=== PATIENT | male | born 1960 | race Caucasian/White ===

== ENCOUNTER 2023-02-26 00:47 | Inpatient (IN) | payer OTHER ==
[2023-02-26] MEDS ORDERED: CEFTRIAXONE 1000 MG/VIAL ONE (01:26)
[2023-02-26] MEDS ORDERED: NA CHLORIDE 0.9% 250 ML ONE (01:27)
[2023-02-26] MEDS ORDERED: ASPIRIN 81 MG CHEWABLE TABLET ONE (01:27)
[2023-02-26] MEDS ORDERED: NA CHLORIDE 0.9% 3,000 ML ONE (01:27)
[2023-02-26] MEDS ORDERED: FAMOTIDINE 20 MG/2 ML VIAL IV ONE (01:27)
[2023-02-26] MEDS ORDERED: AZITHROMYCIN 500 MG INJ IVPB ONE (01:27)
[2023-02-26] MEDS ORDERED: METHYLPREDNISOLONE 125 MG INJ ONE (01:27)
[2023-02-26 01:48] LABS: Absolute Lymphocytes (CBC) 0.6 K/uL (0.7-4.9); Hematocrit 39.9 % (39.6-49.0); MCV 85.5 fL (80-100); MPV 7.8 fL (7.6-11.3); Platelets 108 thou/uL (152-406); RBC Red Blood Cell Count 4.66 M/uL (4.33-5.43)
[2023-02-26 01:49] LABS: Protime INR 1.06
[2023-02-26 01:59] LABS: Albumin 3.1 g/dL (3.4-5.0); Bilirubin Direct 0.3 mg/dL (0-0.2); Bilirubin Indirect, Calculated 0.3 mg/dL (0.2-0.8); Bilirubin Total 0.6 mg/dL (0.2-1.0); C-Reactive Protein 9.09 mg/L (<3.00); Magnesium 2.4 mg/dL (1.6-2.4); Potassium 3.6 mEq/L (3.5-5.1); Troponin High Sensitivity 35.1 pg/mL (<58.9)
--- NOTE | 2023-02-26 01:59 | ER ---
Nurse's Notes [facility] Name: Marco Joseph Jr Age: 62 yrs Sex: Male : 1960 Arrival Date: 02/26/2023 Time: 00:47 Bed 20 Private MD: Diagnosis: SARS-associated coronavirus as the cause of diseases classified elsewhere;Weakness;Dehydration;Dyspnea;Hypotension, unspecified;Abnormal results of kidney function studies;Acute kidney failure, unspecified Presentation: 02/26 00:55 Chief complaint: Patient states: Pt was diagnosed with Covid on 02/19/23 from a home jb4 test. He sounds like he has pneumonia. was 83% on RA at home with a B/p of 95/60. He received 125 of Solumedrol IV and 500ml of NS IV. IV came out during transfer. BGL was 130. Coronavirus screen: Client presents with at least one sign or symptom that may indicate coronavirus-19. Ebola Screen: No symptoms or risks identified at this time. Initial Sepsis Screen: Does the patient meet any 2 criteria? Systolic BP < 90 mmHg. Yes Does the patient have a suspected source of infection? No. Patient's initial sepsis screen is negative. Risk Assessment: Do you want to hurt yourself or someone else? Patient reports no desire to harm self or others. Onset of symptoms was February 26, 2023. Transition of care: patient was not received from another setting of care. 00:55 Method Of Arrival: EMS: [facility] jb4 00:55 Acuity: CARITO 2 jb4 Historical: - Allergies: 01:01 Lisinopril; jb4 01:01 Prozac; jb4 - Home Meds: 01:01 carvedilol oral [Active]; Clonazepam Oral [Active]; atorvastatin oral [Active]; jb4 - PMHx: 01:01 Borederline DM; CVA; HTN; Heart block; Blind in R eye; jb4 - PSHx: 01:01 Shrapnel removed from ankle; jb4 - Immunization history:: Adult Immunizations up to date, Client reports receiving the 2nd dose of the Covid vaccine. - Family history:: not pertinent. - Social history:: Smoking status: Patient denies any tobacco usage or history of. Screenin:20 [facility] ED Fall Risk Assessment (Adult) History of falling in the last 3 months, lg3 including since admission No falls in past 3 months (0 pts). Abuse screen: Denies threats or abuse. Denies injuries from another. Nutritional screening: No deficits noted. Tuberculosis screening: No symptoms or risk factors identified. Assessment: 01:20 General: Appears in no apparent distress. comfortable, Behavior is calm, cooperative. lg3 Pain: Denies pain. Neuro: No deficits noted. Davison Agitation-Sedation Scale (RASS): 0 - Alert and Calm Level of Consciousness is awake, alert, obeys commands, Oriented to person, place, time, situation. Cardiovascular: Reports fatigue, shortness of breath, Denies chest pain, Capillary refill < 3 seconds Clubbing of nail beds is absent JVD is absent Patient's skin is warm and dry. Respiratory: Airway is patent Respiratory effort is even, unlabored, Respiratory pattern is regular, symmetrical. Respiratory: Reports shortness of breath at rest labored breathing. GI: No deficits noted. No signs and/or symptoms were reported involving the gastrointestinal system. Abdomen is round non-distended, obese. : No deficits noted. No signs and/or symptoms were reported regarding the genitourinary system. EENT: No deficits noted. No signs and/or symptoms were reported regarding the EENT system. Derm: No deficits noted. No signs and/or symptoms reported regarding the dermatologic system. Skin is intact, is healthy with good turgor, Skin is dry, Skin is normal, Skin temperature is warm. Musculoskeletal: No deficits noted. No signs and/or symptoms reported regarding the musculoskeletal system. Circulation, motion, and sensation intact. Range of motion: intact in all extremities. 02:47 Reassessment: Patient appears in no apparent distress at this time. No changes from lg3 previously documented assessment. Patient and/or family updated on plan of care and expected duration. Pain level reassessed. Patient is alert, oriented x 3, equal unlabored respirations, skin warm/dry/pink. 05:46 Reassessment: Patient appears in no apparent distress at this time. No changes from jb4 previously documented assessment. Patient and/or family updated on plan of care and expected duration. Pain level reassessed. Patient is alert, oriented x 3, equal unlabored respirations, skin warm/dry/pink. Patient states feeling better. Patient states symptoms have improved. Vital Signs: 00:55 BP 88 / 54; Pulse 69; Resp 18; Temp 97.2(TE); Pulse Ox 97% on R/A; Weight 104.33 kg; jb4 Height 5 ft. 10 in. (R); 01:20 BP 81 / 39; Pulse 65; Resp 21 S; Pulse Ox 96% on 4 lpm NC; lg3 02:43 BP 92 / 58; Pulse 72; Resp 19 S; Pulse Ox 100% on 3 lpm NC; lg3 03:25 BP 87 / 57; Pulse 71; Resp 18 S; Pulse Ox 100% on R/A; lg3 04:39 BP 83 / 62; Pulse 74; Resp 19 S; Pulse Ox 98% on 3 lpm NC; lg3 05:46 BP 95 / 57; Pulse 75; Resp 19 S; Pulse Ox 99% on 3 lpm NC; jb4 00:55 Body Mass Index 33.00 (104.33 kg, 177.8 cm) jb4 ED Course: 00:50 Patient arrived in ED. lg3 00:51 Yosi Caceres MD is Attending Physician. gael 00:59 Triage completed. jb4 01:01 Arm band placed on right wrist. jb4 01:19 Nayla Chase RN is Primary Nurse. lg3 01:20 Patient has correct armband on for positive identification. Placed in gown. Bed in low lg3 position. Call light in reach. Side rails up X 1. Client placed on continuous cardiac and pulse oximetry monitoring. NIBP monitoring applied. ekg monitor on. Door closed. Noise minimized. Warm blanket given. Family accompanied patient. 01:20 Inserted saline lock: 20 gauge in left antecubital area, using aseptic technique. Blood lg3 collected. Oxygen administration via nasal cannula \T\ 4L/min. 01:22 Inserted saline lock: 20 gauge in right antecubital area, using aseptic technique. lg3 01:23 Basic Metabolic Panel Sent. lg3 01:23 CBC with Diff Sent. lg3 01:23 LFT's Sent. lg3 01:23 Magnesium Sent. lg3 01:23 NT PRO-BNP Sent. lg3 01:23 PT-INR Sent. lg3 01:23 Troponin HS Sent. lg3 01:23 Lipase Sent. lg3 01:23 Blood Culture Adult (2) Sent. lg3 01:23 Lactate w/ 2H reflex if indic. Sent. lg3 01:47 C-Reactive Protein Sent. lg3 01:47 COVID-19/FLU A+B Sent. lg3 01:54 Iain Mcdonald MD is Hospitalizing Provider. gael 02:47 XRAY Chest (1 view) In Process Unspecified. EDMS 05:46 No provider procedures requiring assistance completed. Patient admitted, IV remains in jb4 place. intact, No redness/swelling at site. Administered Medications: 01:47 Drug: MethylPrednisoLONE IVP 125 mg IVP once Route: IVP; Site: left antecubital; lg3 02:45 Follow up: Response: No adverse reaction lg3 01:47 Drug: Famotidine IVP 20 mg IVP once; dilute with 10 mL 0.9% NaCl; give over 2 minutes lg3 Route: IVP; Site: left antecubital; 02:45 Follow up: Response: No adverse reaction lg3 01:47 Drug: NS 0.9% IV 1000 ml IV at 1 bolus Per protocol; 1000 mL bolus Route: IV; Rate: 1 lg3 bolus; Site: left antecubital; 02:45 Follow up: IV Status: Completed infusion; IV Intake: 1000ml lg3 01:47 Drug: Rocephin IV 2 grams IV at per protocol once; Given slow IV push per pharmarcy lg3 instructions Route: IV; Rate: per protocol; Site: right antecubital; 02:45 Follow up: Response: No adverse reaction; IV Status: Completed infusion; IV Intake: [id number] 01:47 Drug: Zithromax IVPB 500 mg IVPB once over 1 hrs; mix in 250 mL NS Route: IVPB; Infused lg3 Over: 1 hrs; Site: left antecubital; 02:45 Follow up: Response: No adverse reaction; IV Status: Completed infusion; IV Intake: lg3 250ml 01:47 Drug: Aspirin PO Chewable Tablet 81 mg PO once Route: PO; lg3 02:44 Follow up: Response: No adverse reaction lg3 01:48 Drug: NS 0.9% IV 1000 ml IV at 1 bolus Per protocol; 1000 mL bolus Route: IV; Rate: 1 lg3 bolus; Site: left antecubital; 02:46 Follow up: IV Status: Completed infusion; IV Intake: 1000ml lg3 01:48 Drug: NS 0.9% IV 1000 ml IV at 125 ml/hr continuous Route: IV; Rate: 125 ml/hr; Site: lg3 left antecubital; 04:03 Drug: NS 0.9% IV 1000 ml IV at 1 bolus Per protocol; 1000 mL bolus Route: IV; Rate: 1 lg3 bolus; Site: right antecubital; 05:47 Follow up: Response: No adverse reaction; IV Status: Completed infusion; IV Intake: jb4 1000ml Medication: 05:47 VIS not applicable for this client. jb4 Intake: 02:45 IV: 250ml; Total: 250ml. lg3 02:45 IV: 20ml; Total: 270ml. lg3 02:45 IV: 1000ml; Total: 1270ml. lg3 02:46 IV: 1000ml; Total: 2270ml. lg3 05:47 IV: 1000ml; Total: 3270ml. jb4 Outcome: 01:58 Decision to Hospitalize by Provider. gael 05:46 Admitted to ICU accompanied by nurse, via wheelchair, room 5, jb4 05:46 Condition: stable 05:46 Instructed on the need for admit, Demonstrated understanding of instructions, 05:54 Patient left the ED. jb4 Signatures: Dispatcher [employer] EDMS Yosi Caceres MD MD cha Bryson, James, RN RN jb4 Nayla Chase RN RN lg3 Corrections: (The following items were deleted from the chart) 01:41 01:23 C-REACTIVE PROTEIN+C.LAB.BRZ drawn and sent. lg3 EDMS 04:40 02:43 BP 92 / 58; Pulse 72bpm; Resp 19bpm; Spontaneous; Pulse Ox 100% 2 lpm Nasal lg3 Cannula; lg3
--- NOTE | 2023-02-26 01:59 | EDPHYS ---
Physician Documentation [facility] Name: Marco Joseph Jr Age: 62 yrs Sex: Male : 1960 Arrival Date: 02/26/2023 Time: 00:47 Bed 20 Private MD: TAMIE Physician Yosi Caceres HPI: 02/26 01:13 This 62 yrs old Male presents to ER via EMS with complaints of SOB , gael WEAKNESS, COVID. 01:13 The patient has shortness of breath at rest, with light activity. Onset: The gael symptoms/episode began/occurred 3 day(s) ago. Duration: The symptoms are continuous, and are steadily getting worse. The patient's shortness of breath is aggravated by nothing, is alleviated by nothing. The patient or guardian reports cough, difficulty breathing, flu symptoms, arthralgias, low-grade fever, myalgias, no appetite. Modifying factors: The symptoms are alleviated by nothing. the symptoms are aggravated by nothing. MALAISE. Severity of symptoms: At their worst the symptoms were moderate in the emergency department the symptoms are unchanged. Severity of symptoms: At their worst the symptoms were mild, in the emergency department the symptoms are unchanged. Historical: - Allergies: 01:01 Lisinopril; jb4 01:01 Prozac; jb4 - Home Meds: 01:01 carvedilol oral [Active]; Clonazepam Oral [Active]; atorvastatin oral [Active]; jb4 - PMHx: 01:01 Borederline DM; CVA; HTN; Heart block; Blind in R eye; jb4 - PSHx: 01:01 Shrapnel removed from ankle; jb4 - Immunization history:: Adult Immunizations up to date, Client reports receiving the 2nd dose of the Covid vaccine. - Family history:: not pertinent. - Social history:: Smoking status: Patient denies any tobacco usage or history of. ROS: 01:13 Constitutional: Negative for fever, chills, and weight loss, Eyes: Negative for injury, gael pain, redness, and discharge, ENT: Negative for injury, pain, and discharge, Neck: Negative for injury, pain, and swelling, Cardiovascular: Negative for chest pain, palpitations, and edema, Abdomen/GI: Negative for abdominal pain, nausea, vomiting, diarrhea, and constipation, Back: Negative for injury and pain, : Negative for injury, bleeding, discharge, and swelling, MS/Extremity: Negative for injury and deformity, Skin: Negative for injury, rash, and discoloration, Neuro: Negative for headache, weakness, numbness, tingling, and seizure, Psych: Negative for depression, anxiety, suicide ideation, homicidal ideation, and hallucinations, Allergy/Immunology: Negative for hives, rash, and allergies, Endocrine: Negative for neck swelling, polydipsia, polyuria, polyphagia, and marked weight changes, Hematologic/Lymphatic: Negative for swollen nodes, abnormal bleeding, and unusual bruising, : Respiratory: Positive for cough, shortness of breath, wheezing, expiratory, : MS/extremity: Negative for decreased range of motion, pain, swelling, Exam: Constitutional: This is a well developed, well nourished patient who is awake, alert, gael and in no acute distress. Head/Face: Normocephalic, atraumatic. Eyes: Pupils equal round and reactive to light, extra-ocular motions intact. Lids and lashes normal. Conjunctiva and sclera are non-icteric and not injected. Cornea within normal limits. Periorbital areas with no swelling, redness, or edema. ENT: Nares patent. No nasal discharge, no septal abnormalities noted. Tympanic membranes are normal and external auditory canals are clear. Oropharynx with no redness, swelling, or masses, exudates, or evidence of obstruction, uvula midline. Mucous membranes moist. Neck: Trachea midline, no thyromegaly or masses palpated, and no cervical lymphadenopathy. Supple, full range of motion without nuchal rigidity, or vertebral point tenderness. No Meningismus. Chest/axilla: Normal chest wall appearance and motion. Nontender with no deformity. No lesions are appreciated. Cardiovascular: Regular rate and rhythm with a normal S1 and S2. No gallops, murmurs, or rubs. Normal PMI, no JVD. No pulse deficits. Respiratory: Lungs have equal breath sounds bilaterally, clear to auscultation and percussion. No rales, rhonchi or wheezes noted. No increased work of breathing, no retractions or nasal flaring. Abdomen/GI: Soft, non-tender, with normal bowel sounds. No distension or tympany. No guarding or rebound. No evidence of tenderness throughout. Back: No spinal tenderness. No costovertebral tenderness. Full range of motion. Male : Normal genitalia with no discharge or lesions. Skin: Warm, dry with normal turgor. Normal color with no rashes, no lesions, and no evidence of cellulitis. MS/ Extremity: Pulses equal, no cyanosis. Neurovascular intact. Full, normal range of motion. Neuro: Awake and alert, GCS 15, oriented to person, place, time, and situation. Cranial nerves II-XII grossly intact. Motor strength 5/5 in all extremities. Sensory grossly intact. Cerebellar exam normal. Normal gait. Psych: Awake, alert, with orientation to person, place and time. Behavior, mood, and affect are within normal limits. 01:13 Musculoskeletal/extremity: ROM: no acute changes, full active range of motion, full passive range of motion, in all extremities, Circulation is intact in all extremities. Sensation intact. Compartment Syndrome exam of affected extremity: is normal. Weight bearing: able to fully bear weight, without difficulty, DVT Exam: No signs of deep vein thrombosis. no pain, no swelling, no tenderness, negative Homans' sign noted on exam, no appreciated bluish discoloration, no erythema, no increased warmth, Calves: are non-tender, have equal circumference, 01:51 ECG was reviewed by the Attending Physician. gael Vital Signs: 00:55 BP 88 / 54; Pulse 69; Resp 18; Temp 97.2(TE); Pulse Ox 97% on R/A; Weight 104.33 kg; jb4 Height 5 ft. 10 in. (R); 01:20 BP 81 / 39; Pulse 65; Resp 21 S; Pulse Ox 96% on 4 lpm NC; lg3 02:43 BP 92 / 58; Pulse 72; Resp 19 S; Pulse Ox 100% on 3 lpm NC; lg3 03:25 BP 87 / 57; Pulse 71; Resp 18 S; Pulse Ox 100% on R/A; lg3 04:39 BP 83 / 62; Pulse 74; Resp 19 S; Pulse Ox 98% on 3 lpm NC; lg3 05:46 BP 95 / 57; Pulse 75; Resp 19 S; Pulse Ox 99% on 3 lpm NC; jb4 00:55 Body Mass Index 33.00 (104.33 kg, 177.8 cm) jb4 MDM: 00:51 Patient medically screened. gael 01:17 Differential diagnosis: obstructed airway, tracheal injury, bronchitis, flu, URI, viral gael Infection, bacterial infection, URI, bronchitis, pneumonia. Antibiotic administration: Rocephin and Zithromax given. Differential Diagnosis altered mental status, sepsis, flu, Obstructed Airway Bronchitis Influenza Upper Respiratory Infection Sinusitis Pharyngitis Otitis Media Allergic Rhinitis Asthma Exacerbation Viral Syndrome Pneumonia. Immunization status: Influenza vaccine: within last 5 years. Data reviewed: vital signs, nurses notes, EMS record, lab test result(s), EKG, radiologic studies, plain films. Consideration of Admission/Observation Patient was admitted/placed on observation. Escalation of care including admission/observation considered. I considered the following discharge prescriptions or medication management in the emergency department Medications were administered in the Emergency Department. See MAR. Independent interpretation of the following test(s) in the Emergency Department EKG: See my EKG interpretation above. Test considered but Not performed: Ultrasound NO 2 D ECHO. Historians other than the Patient: Spouse/Significant Other: WELL INFORMED. Care significantly affected by the following chronic conditions: Diabetes, Hypertension, Obesity, BLIND. Counseling: I had a detailed discussion with the patient and/or guardian regarding the historical points, exam findings, and any diagnostic results supporting the discharge/admit diagnosis, the presence of at least one elevated blood pressure reading (>120/80) during this emergency department visit, lab results, radiology results, the need for further work-up and treatment in the hospital. 02/26 01:06 Order name: Basic Metabolic Panel; Complete Time: 04:15 [facility] 02/26 01:06 Order name: CBC with Diff; Complete Time: 04:15 [facility] 02/26 01:06 Order name: LFT's; Complete Time: 04:15 [facility] 02/26 01:06 Order name: Magnesium; Complete Time: 04:15 [facility] 02/26 01:06 Order name: NT PRO-BNP; Complete Time: 04:15 [facility] 02/26 01:06 Order name: PT-INR; Complete Time: 04:15 [facility] 02/26 01:06 Order name: Troponin HS; Complete Time: 04:15 [facility] 02/26 01:06 Order name: Lipase; Complete Time: 04:15 [facility] 02/26 01:06 Order name: Blood Culture Adult (2) [facility] 02/26 01:06 Order name: Lactate w/ 2H reflex if indic.; Complete Time: 04:15 gael 02/26 01:08 Order name: Urinalysis w/ reflexes gael 02/26 01:24 Order name: COVID-19/FLU A+B; Complete Time: 04:15 gael 02/26 01:41 Order name: C-Reactive Protein; Complete Time: 04:15 EDMS 02/26 03:59 Order name: Urinalysis w/ reflexes EDMS 02/26 03:59 Order name: CBC with Automated Diff EDMS 02/26 03:59 Order name: CBC with Automated Diff EDMS 02/26 03:59 Order name: Comprehensive Metabolic Panel EDMS 02/26 03:59 Order name: Comprehensive Metabolic Panel EDMS 02/26 04:11 Order name: C-Reactive Protein EDMS 02/26 04:11 Order name: C-Reactive Protein EDMS 02/26 04:11 Order name: D-Dimer EDMS 02/26 04:11 Order name: D-Dimer EDMS 02/26 04:11 Order name: Ferritin EDMS 02/26 04:11 Order name: Ferritin EDMS 02/26 01:06 Order name: XRAY Chest (1 view) [facility] 02/26 02:06 Order name: Chest Angio EDMS 02/26 04:16 Order name: US Extremity Venous W Compression Peter gael 02/26 01:06 Order name: EKG; Complete Time: 01:07 gael 02/26 01:06 Order name: Cardiac monitoring; Complete Time: 01:23 gael 02/26 01:06 Order name: EKG - Nurse/Tech; Complete Time: 01:48 gael 02/26 01:06 Order name: IV Saline Lock; Complete Time: 01:23 gael 02/26 01:06 Order name: Labs collected and sent; Complete Time: 01:23 gael 02/26 01:06 Order name: O2 Per Protocol; Complete Time: 01:23 gael 02/26 01:06 Order name: O2 Sat Monitoring; Complete Time: 01:23 gael 02/26 01:06 Order name: IV Saline Lock - Large Bore; Complete Time: 01:48 [facility] EC:51 Rate is 65 beats/min. Rhythm is regular. QRS Wray is Normal. KS interval is normal. QRS gael interval is normal. QT interval is normal. No Q waves. T waves are Normal. No ST changes noted. Clinical impression: Normal ECG and No evidence of ischemia. Interpreted by me. Reviewed by me. Administered Medications: 01:47 Drug: MethylPrednisoLONE IVP 125 mg IVP once Route: IVP; Site: left antecubital; lg3 02:45 Follow up: Response: No adverse reaction lg3 01:47 Drug: Famotidine IVP 20 mg IVP once; dilute with 10 mL 0.9% NaCl; give over 2 minutes lg3 Route: IVP; Site: left antecubital; 02:45 Follow up: Response: No adverse reaction lg3 01:47 Drug: NS 0.9% IV 1000 ml IV at 1 bolus Per protocol; 1000 mL bolus Route: IV; Rate: 1 lg3 bolus; Site: left antecubital; 02:45 Follow up: IV Status: Completed infusion; IV Intake: 1000ml lg3 01:47 Drug: Rocephin IV 2 grams IV at per protocol once; Given slow IV push per pharmarcy lg3 instructions Route: IV; Rate: per protocol; Site: right antecubital; 02:45 Follow up: Response: No adverse reaction; IV Status: Completed infusion; IV Intake: [id number] 01:47 Drug: Zithromax IVPB 500 mg IVPB once over 1 hrs; mix in 250 mL NS Route: IVPB; Infused lg3 Over: 1 hrs; Site: left antecubital; 02:45 Follow up: Response: No adverse reaction; IV Status: Completed infusion; IV Intake: lg3 250ml 01:47 Drug: Aspirin PO Chewable Tablet 81 mg PO once Route: PO; lg3 02:44 Follow up: Response: No adverse reaction lg3 01:48 Drug: NS 0.9% IV 1000 ml IV at 1 bolus Per protocol; 1000 mL bolus Route: IV; Rate: 1 lg3 bolus; Site: left antecubital; 02:46 Follow up: IV Status: Completed infusion; IV Intake: 1000ml lg3 01:48 Drug: NS 0.9% IV 1000 ml IV at 125 ml/hr continuous Route: IV; Rate: 125 ml/hr; Site: lg3 left antecubital; 04:03 Drug: NS 0.9% IV 1000 ml IV at 1 bolus Per protocol; 1000 mL bolus Route: IV; Rate: 1 lg3 bolus; Site: right antecubital; 05:47 Follow up: Response: No adverse reaction; IV Status: Completed infusion; IV Intake: jb4 1000ml Disposition Summary: 02/26/23 01:58 Hospitalization Ordered Notes: Hospitalization Status: Inpatient Admission gael Provider: Iain Mcdonald cha Condition: Stable gael Problem: new gael Symptoms: have improved gael Bed/Room Type: Standard gael Location: Intensive Care Unit(02/26/23 02:10) gael Room Assignment: 5-(02/26/23 05:13) pako Diagnosis - SARS-associated coronavirus as the cause of diseases classified elsewhere gael - Weakness gael - Dehydration gael - Dyspnea gael - Hypotension, unspecified gael - Abnormal results of kidney function studies gael - Acute kidney failure, unspecified gael Forms: - Medication Reconciliation Form gael - SBAR form gael - Leadership Thank You Letter gael Signatures: Dispatcher [employer] EDAlis Wheatley RN Yosi Wheatley MD MD cha Bryson, James RN RN jb4 Nayla Chase RN RN lg3 Corrections: (The following items were deleted from the chart) 01:41 01:09 C-REACTIVE PROTEIN+C.LAB.BRZ ordered. EDTX EDMS 02:10 01:58 Telemetry/MedSurg (Inpatient) gael gael 02:10 01:58 gael gael 05:13 02:10 gael min
[2023-02-26] MEDS ORDERED: NA CHLORIDE 0.9% 1,000 ML ONE ×2 (02:30→23:20)
[2023-02-26 03:03] LABS: SARS-COV-2 RT PCR POSITIVE (NEGATIVE)
[2023-02-26] MEDS ORDERED: ACETAMINOPHEN 500 MG TAB PO PRN (03:53)
[2023-02-26] MEDS ORDERED: ONDANSETRON 4 MG/2 ML VIAL IV PRN (03:53)
[2023-02-26] MEDS ORDERED: NA CHLORIDE 0.9% 1,000 ML IV SCH ×3 (04:00→23:45)
--- NOTE | 2023-02-26 04:04 | P.HP ---
Certification for Inpatient Patient admitted to: Inpatient With expected LOS: >2 Midnights Practitioner: I am a practitioner with admitting privileges, knowledge of patient current condition, hospital course, and medical plan of care. Services: Services provided to patient in accordance with Admission requirements found in Title 42 Section 412.3 of the Code of Federal Regulations Patient History Date of Service: 02/26/23 Reason for admission: SOB History of Present Illness: 62 yrs old Male with past medical history of diabetes borderline: History hypertension, CVA, history of heart block, history of carotid artery stenosis, obstructive sleep apnea on CPAP, who started having shortness of breath 3 to 4 days ago. Patient was diagnosed with home COVID test which was +1-week ago but has been doing good . He started having shortness of breath and cough and wheezing and generalized weakness and low-grade fever and myalgia and decreased appetite since 3 days and has been progressively worsening and was brought to ER. Shortness of breath is progressively worsening even with minimal exertion. No chills. Cough is productive with mucoid expectoration. Denies any nausea or vomiting. No diarrhea. Patient was assessed in the ER and was admitted for further management of COVID pneumonia. Patient also found to be hypotensive in the ER and had to be placed on IV fluids. Home medications list reviewed: Yes - Past Medical/Surgical History Past Medical History: Reviewed- Non-Contributory -: Hypertension , Borderline diabetes , BRYON Past Surgical History: Reviewed- Non-Contributory -: Carotid artery stenosis - Family History Family History: Reviewed- Non-Contributory - Social History Smoking Status: Never smoker Review of Systems 10-point ROS is otherwise unremarkable General: Weakness, Malaise Eyes: Unremarkable ENT: Unremarkable Respiratory: Cough, Shortness of Breath, SOB with Excertion, Wheezing Cardiovascular: Unremarkable Gastrointestinal: Unremarkable Genitourinary: Unremarkable Musculoskeletal: Unremarkable Integumentary: Unremarkable Neurological: Unremarkable Physical Examination - Vital Signs Temperature: 98.9 F Blood Pressure: 88/49 Pulse: 96 Respirations: 20 Pulse Ox (%): 98 - Physical Exam General: Alert, Oriented x3, Cooperative, Mild distress, Obese HEENT: Atraumatic, Normocephalic Neck: Supple, No Thyromegaly Respiratory: Diminished, Crackles/rales, Expiratory wheezes Cardiovascular: No edema, Regular rate/rhythm, Normal S1 S2, No rubs Capillary refill: <2 Seconds Gastrointestinal: Soft and benign, Non-distended, W/out hepatosplenomegaly Musculoskeletal: No clubbing, No swelling Integumentary: No rashes Neurological: Normal speech, Normal strength at 5/5 x4 extr, Cranial nerves 3-12 intact, Normal reflexes 2+, Normal affect Lymphatics: No axilla or inguinal lymphadenopathy - Studies Laboratory Data (last 24 hrs) 02/26/23 02/26/23 02/26/23 01:15 01:15 01:15 WBC 3.00 L Hgb 13.6 Hct 39.9 Plt Count 108 L PT 11.6 INR 1.06 Sodium 135 L Potassium 3.6 BUN 33 H Creatinine 1.91 H Glucose 126 H Magnesium 2.4 Total Bilirubin 0.6 AST 58 H ALT 53 Alkaline Phosphatase 80 Lipase 92 H Assessment and Plan - Problems (Diagnosis) (1) Viral sepsis Current Visit: Yes Status: Acute Plan: Will get inflammatory markers Will get a D-dimer and CRP levels Started on IV hydration in moderation Started on IV antibiotics Will obtain cultures Change antibiotic as per sensitivities (2) COVID-19 Current Visit: Yes Status: Acute Plan: COVID-19 pneumonia Acute hypoxic respiratory failure Oxygen supplementation Will start on steroids Pulmonology consulted Bronchodilators as needed (3) Hypotension Current Visit: Yes Status: Acute Plan: Hypotension with a history of hypertension Will hold antihypertensives for now Patient received 2 L of NS fluids in ER Will start on IV hydration in moderation Will add on albumin May add on midodrine if needed (4) Acute kidney injury Current Visit: Yes Status: Acute Plan: Monitor renal parameters Possibly combination of hypotension and dehydration Electrolytes monitor and replace accordingly (5) Obstructive sleep apnea Current Visit: Yes Status: Chronic Plan: Patient is on CPAP at home Will continue the same Discharge Plan: Home Plan to discharge in: Greater than 2 days - Advance Directives Does patient have a Living Will: No Does patient have a Durable POA for Healthcare: No - Code Status/Comfort Care Code Status: Full Code Time Spent Managing Pts Care (In Minutes): 48
[2023-02-26] MEDS: METHYLPREDNISOLONE 40 MG INJ IV SCH ×2 (04:09→08:50)
[2023-02-26] MEDS: CEFTRIAXONE 1,000 MG in NA CHLORIDE 0.9% 50 ML IVPB SCH ×2 (04:11→08:50)
[2023-02-26] MEDS: AZITHROMYCIN IV 500 MG in NA CHLORIDE 0.9% 250 ML IVPB SCH ×2 (04:11→08:51)
--- NOTE | 2023-02-26 06:41 | P.PN ---
Date of Service: 02/26/23 Subjective: Physical Exam: Vitals: reviewed GEN: Alert, oriented, NAD HEENT: Normal conjunctiva, sclera anicteric CV: Regular rate & rhythm, no edema Pulm: Nonlabored respiraitons, clear bilaterally ABD: Soft, nontender, nondistended MSK: No joint tenderness Integumentary: No rashes Neuro: Normal speech, normal affect Problem List: Viral sepsis likely secondary to Covid Pneumonia Hypotension LORRI obstructive sleep apnea h/o prior CVA h/o carotid artery stenosis Plan: Viral sepsis likely secondary to Covid Pneumonia Acute hypoxic respiratory failure secondary to Covid Pneumonia COVID-19 pneumonia continue empiric rocephin / azithromycin Continue IV solumedrol SKYLAR jadonbs. Bronchodilators as needed Pulm consulted wean oxygen as tolerated check inflammatory markers Will get a D-dimer and CRP levels Follow blood cultures Hypotension Hypotension with a history of hypertension Will hold antihypertensives for now given 2L of NS fluids in ER Continue IV fluids May add on midodrine if needed LORRI possible secondary to hypotension and dehydration Continue IV fluids monitor electrolytes and replace accordingly obstructive sleep apnea Patient is on CPAP at home DVT prophylaxis: Lovenox
[2023-02-26] MEDS ORDERED: ALBUTEROL 2.5 MG/3 ML NEB SOL NEB SCH (07:00)
--- NOTE | 2023-02-26 07:42 | RAD REPORT ---
EXAM DESCRIPTION: Extrem Venous W Compress Peter [employer]: US EXTREMITY VEINS BILATERAL CLINICAL HISTORY: 62 years Male; Pain;Swelling TECHNIQUE: Spectral analysis and color/grayscale sonographic images of both legs were obtained utili zing a high-frequency linear array transducer supplemented with color Doppler, compression and augmen tation techniques. COMPARISON: None. FINDINGS: Right leg veins: Common femoral: normal Greater saphenous: normal Superficial femoral: normal Popliteal: normal Calf Veins: normal Left leg veins: Common femoral: normal Greater saphenous: normal Superficial femoral: normal Popliteal: normal Calf Veins: normal IMPRESSION: 1. No sonographic evidence for lower extremity deep venous thrombosis in either leg. Electronically signed by: Francesca Caraballo MD 02/26/2023 05:25 AM PERSONAL SECRETARY Due to temporary technical issues with the PACS/Fluency reporting system, reports are being signed by the in house radiologist without review as a courtesy to ensure prompt reporting. The interpreting r adiologist is fully responsible for the content of the report.
--- NOTE | 2023-02-26 08:05 | RAD REPORT ---
EXAM DESCRIPTION: XR CHEST 1 VIEW CLINICAL HISTORY: Male, 62 years old, Chest pain;Cough TECHNIQUE: 1 view COMPARISON: None. FINDINGS: Soft tissue attenuation and beam underpenetration limit assessment. SUPPORT DEVICES: Overlying leads. LUNGS/PLEURA: Perihilar interstitial prominence. No consolidation, pleural effusion or pneumothorax. HEART/MEDIASTINUM: Enlarged heart size with central pulmonary vascular prominence. OTHER: No acute osseous findings. IMPRESSION: Cardiomegaly with interstitial markings suggestive of edema or pneumonitis/bronchitis. N o consolidation. Electronically signed by: Raul Villanueva MD 02/26/2023 04:20 AM COMMUNITY AFFAIRS MANAGER Due to temporary technical issues with the PACS/Fluency reporting system, reports are being signed by the in house radiologist without review as a courtesy to ensure prompt reporting. The interpreting r adiologist is fully responsible for the content of the report.
[2023-02-26] MEDS: ENOXAPARIN 40 MG/0.4 ML SQ SCH (08:50)
[2023-02-26] MEDS: IPRATROPIUM BROM 0.5MG/2.5ML NEB SCH ×3 (09:22→19:00)
[2023-02-26] MEDS ORDERED: ALBUTEROL 2.5 MG/3 ML NEB SOL NEB PRN (11:50)
--- NOTE | 2023-02-26 11:51 | P.CNS ---
Date of Consult: 02/26/23 Reason for Consult: Coronavirus infection Chief Complaint: SOB History of Present Illness: Patient is 62 years of age tested positive for coronavirus on the first of this month started having progressive cough shortness of breath wheezing. Admitted to the hospital currently doing better off oxygen prior history of of pulmonary issues history of significant cardiac problems including stroke she does not smoke Allergies fluoxetine [From Prozac] Allergy (Verified 02/26/23 05:02) unknown lisinopril Allergy (Verified 02/26/23 05:02) unknown - Past Medical/Surgical History Diabetic: Yes -: Hypertension , Borderline diabetes , BRYON -: CVA -: PTSD -: PANIC DISORDER/ANXIETY -: AGROPHOBIA -: Coronary artery disease inoperable -: Carotid artery stenosis - Social History Alcohol use: No CD- Drugs: Yes Caffeine use: Yes Place of Residence: Home Review of Systems 10-point ROS is otherwise unremarkable Physical Examination Temp Pulse Resp BP Pulse Ox 96.9 F 74 20 133/83 100 02/26/23 06:00 02/26/23 06:00 02/26/23 06:00 02/26/23 06:00 02/26/23 06:00 General: Alert, Oriented x3 Neck: Supple Respiratory: Clear to auscultation bilaterally Cardiovascular: No edema, Regular rate/rhythm, Normal S1 S2 Gastrointestinal: Normal bowel sounds, Soft and benign Laboratory Data (last 24 hrs) 02/26/23 02/26/23 02/26/23 01:15 01:15 01:15 WBC 3.00 L Hgb 13.6 Hct 39.9 Plt Count 108 L PT 11.6 INR 1.06 Sodium 135 L Potassium 3.6 BUN 33 H Creatinine 1.91 H Glucose 126 H Magnesium 2.4 Total Bilirubin 0.6 AST 58 H ALT 53 Alkaline Phosphatase 80 Lipase 92 H - Problems (1) COVID-19 Current Visit: Yes Status: Acute Plan: Patient is 62 years of age had a progressive dyspnea cough shortness of breath since January 19 of this year of last year renal function is mildly abnormal chest x-ray shows mild ILD she is not requiring any oxygen hemodynamically stable continue with IV fluid white count is low DC CT pulmonary angiogram increase IV fluids add Paxlovid (2) Renal failure Current Visit: Yes Status: Acute Plan: UA pending [facility] IV fluids Qualifiers: Renal failure chronicity: unspecified chronicity Qualified Code(s): N19 - Unspecified kidney failure
--- NOTE | 2023-02-26 12:20 | EKG ---
Test Date: 2023-02-26 Test Time: 01:41:11 Pharmacognosist: LIZZIE MEASUREMENT RESULTS: Intervals: Rate: 65 MN: 182 QRSD: 108 QT: 404 QTc: 420 [place]: P: 60 MN: 182 QRS: 31 T: 18 INTERPRETIVE STATEMENTS: Normal sinus rhythm Normal ECG No previous ECG available for comparison Electronically Signed On 02-26-23 12:18:40 MANUFACTURING SYSTEMS ENGINEER by Elmer Mar
[2023-02-26] MEDS: NIRMATRELVIR/RITONAVIR TABLET PO SCH ×2 (13:30→21:00)
[2023-02-26] MEDS ORDERED: IPRATROPIUM BROM 0.5MG/2.5ML ONE (14:19)
--- NOTE | 2023-02-26 22:36 | RAD REPORT ---
EXAM DESCRIPTION: US - Renal Ultrasound-Complete - 02/26/2023 7:14 pm CLINICAL HISTORY: Renal faiure COMPARISON: No comparisons TECHNIQUE: Sonographic grayscale and color flow images of the kidneys and bladder were obtained. FINDINGS: Both kidneys are normal in size, shape, and echotexture. The right kidney measures 10 cm in length. No hydronephrosis, focal mass, or echogenic calculi. The left kidney measures 9.4 cm in length. Evaluation of the left kidney is limited given over shadow ing bowel gas. No hydronephrosis, focal mass, or echogenic calculi. The urinary bladder is decompressed limiting evaluation. Incidentally noted diffuse hepatic parenchymal hyperechogenicity suggesting steatosis. IMPRESSION: Unremarkable renal sonogram allowing for limited evaluation of the left kidney. Bladder is decompressed limiting evaluation.
[2023-02-27] MEDS: IPRATROPIUM BROM 0.5MG/2.5ML NEB SCH ×2 (01:00→07:00)
[2023-02-27 05:12] LABS: Absolute Lymphocytes (CBC) 0.5 K/uL (0.7-4.9); Hematocrit 38.4 % (39.6-49.0); Lymphocytes % 7.8 % (15.3-44.8); MCV 85.3 fL (80-100); MPV 7.8 fL (7.6-11.3); Platelets 133 thou/uL (152-406)
[2023-02-27 05:25] LABS: Albumin 2.8 g/dL (3.4-5.0); Bilirubin Total 0.4 mg/dL (0.2-1.0); C-Reactive Protein 4.44 mg/L (<3.00); Ferritin 322.3 ng/mL (26-388); Magnesium 2.3 mg/dL (1.6-2.4); Phosphorus 1.6 mg/dL (2.5-4.9); Protein, Total 6.3 g/dL (6.4-8.2)
[2023-02-27 05:36] VITALS: BMI 39.3
[2023-02-27] MEDS: NIRMATRELVIR/RITONAVIR TABLET PO SCH (08:43)
[2023-02-27] MEDS: ENOXAPARIN 40 MG/0.4 ML SQ SCH (08:43)
[2023-02-27] MEDS: POTASS/SODIUM PHOSPHATE 1 PKT POWD.PACK PO SCH ×3 (08:44→10:26)
[2023-02-27] MEDS ORDERED: dexAMETHasone 4 MG TAB PO SCH (09:00)
[2023-02-27] MEDS ORDERED: AZITHROMYCIN 250 MG TAB PO SCH (09:00)
[2023-02-27 09:05] LABS: Platelet Estimate ADEQ
[2023-02-27 09:06] LABS: Blood Morphology Comment NOT SEEN (NOT SEEN)
[2023-02-27] MEDS ORDERED: NA CHLORIDE 0.9% 1,000 ML IV SCH (11:00)
--- NOTE | 2023-02-27 11:10 | RAD REPORT ---
EXAM DESCRIPTION: CT - Chest For Pe Angio - 02/27/2023 10:49 am CLINICAL HISTORY: Chest pain COMPARISON: None. TECHNIQUE: Dynamically enhanced axial 3 mm thick images of the chest were obtained during administra tion of 100 mL Isovue 370 IV contrast. Coronal and oblique reconstruction images were generated and r eviewed. Exam utilizes a protocol for optimal evaluation of pulmonary arterial tree. Maximum intensity projections 3D imaging was utilized All CT scans are performed using dose optimization technique as appropriate and may include automated exposure control or mA/KV adjustment according to patient size. FINDINGS: A pulmonary embolus is not seen. A thoracic aortic aneurysm is not noted. A pleural effusion is not seen. A pericardial effusion is not seen. A lung consolidation is not present. Mild COPD Small left diaphragmatic hernia containing fat IMPRESSION: Negative for a pulmonary embolism.
--- NOTE | 2023-02-27 11:42 | P.PN ---
Subjective Date of Service: 02/27/23 Chief Complaint: Coronavirus infection Subjective: Improving (Patient is improving doing better shortness of breath has improved) Review of Systems Unremarkable Physical Examination - Vital Signs Temperature: 96.6 F Blood Pressure: 117/63 Pulse: 69 Respirations: 10 Pulse Ox (%): 96 - Physical Exam General: Alert, In no apparent distress, Oriented x3 Respiratory: Clear to auscultation bilaterally Cardiovascular: No edema, Normal pulses Assessment And Plan - Current Problems (Diagnosis) (1) COVID-19 Current Visit: Yes Status: Acute Plan: Patient is doing much better off oxygen blood pressure stable CT angiogram negative for PE no evidence of COVID-pneumonia discharge patient on low-dose Decadron plus Paxlovid can also continue with azithromycin patient to withhold any diuretics he will discuss with his [place] doctor renal ultrasound was negative (2) Renal failure Current Visit: Yes Status: Acute Plan: Renal function has improved currently he has been taking diuretics at home Qualifiers: Renal failure chronicity: unspecified chronicity Qualified Code(s): N19 - Unspecified kidney failure
[2023-02-27 12:40] VITALS: TEMP 97.2; O2SAT 95
[2023-02-27 16:07] VITALS: BP 138/76
[2023-02-27] MEDS ORDERED: NIRMATRELVIR/RITONAVIR TABLET PO SCH (21:00)
--- NOTE | 2023-03-19 14:16 | P.DS ---
Discharge Date: 02/27/23 Disposition: ROUTINE DISCHARGE Discharge Condition: GOOD Reason for Admission: Coronavirus infection Brief History of Present Illness: Pt is a 62 yrs old Male with past medical history of diabetes borderline: History hypertension, CVA, history of heart block, history of carotid artery stenosis, obstructive sleep apnea on CPAP, who started having shortness of breath 3 to 4 days ago. Patient was diagnosed with home COVID test which was +1-week ago but has been doing good . He started having shortness of breath and cough and wheezing and generalized weakness and low-grade fever and myalgia and decreased appetite since 3 days and has been progressively worsening and was brought to ER. Shortness of breath is progressively worsening even with minimal exertion. No chills. Cough is productive with mucoid expectoration. Denies any nausea or vomiting. No diarrhea. Patient was assessed in the ER and was admitted for further management of COVID pneumonia. Patient also found to be hypotensive in the ER and had to be placed on IV fluids. Hospital Course: Patient has done well during hospital stay. Patient's clinical symptoms have improved. Patient will be discharged on steroids and inhaler therapy as well as cough medication. Patient will follow with Pulmonary in 1-2 weeks. At this time, patient is stable for discharge home. Vital Signs/Physical Exam: Temp Pulse Resp BP Pulse Ox 97.2 F 72 16 138/76 96 02/27/23 12:00 02/27/23 15:00 02/27/23 15:00 02/27/23 15:00 02/27/23 15:00 General: Alert, In no apparent distress, Oriented x3 Laboratory Data at Discharge: WBC 6.50 thou/uL (4.3-10.9) 02/27/23 04:46 Hgb 13.2 g/dL (13.6-17.9) L 02/27/23 04:46 Hct 38.4 % (39.6-49.0) L 02/27/23 04:46 Plt Count 133 thou/uL (152-406) L 02/27/23 04:46 PT 11.6 SECONDS (9.5-12.5) 02/26/23 01:15 INR 1.06 02/26/23 01:15 Sodium 138 mEq/L (136-145) 02/27/23 04:46 Potassium 4.0 mEq/L (3.5-5.1) 02/27/23 04:46 BUN 21 mg/dL (7-18) H 02/27/23 04:46 Creatinine 1.19 mg/dL (0.70-1.30) 02/27/23 04:46 Glucose 190 mg/dL (74-106) H 02/27/23 04:46 Phosphorus 1.6 mg/dL (2.5-4.9) L 02/27/23 04:46 Magnesium 2.3 mg/dL (1.6-2.4) 02/27/23 04:46 Total Bilirubin 0.4 mg/dL (0.2-1.0) 02/27/23 04:46 AST 43 U/L (15-37) H 02/27/23 04:46 ALT 40 U/L (16-61) 02/27/23 04:46 Alkaline Phosphatase 69 U/L (45-117) 02/27/23 04:46 Lipase 92 U/L (13-75) H 02/26/23 01:15 Home Medications: Azithromycin [Zithromax] 250 mg PO ZPAK #1 blade 02/27/23 Benzonatate [Tessalon Perle] 200 mg PO TID PRN #20 cap 02/27/23 Methylprednisolone [Medrol dosepack] 4 mg PO DIRECTED #1 blade 02/27/23 Nirmatrelvir/Ritonavir [Paxlovid 2X150 mg-100 mg (Eua)] 3 tab PO BID 02/27/23 New Medications: Methylprednisolone [Medrol dosepack] 4 mg PO DIRECTED #1 blade Benzonatate [Tessalon Perle] 200 mg PO TID PRN #20 cap PRN Reason: Cough Azithromycin [Zithromax] 250 mg PO ZPAK #1 blade Physician Discharge Instructions: OK TO DC IV AND DC HOME FOLLOW-UP WITH PRIMARY CARE PROVIDER IN 1-2 WEEKS FOLLOW-UP WITH Pulmonary IN 1-2 WEEKS RETURN TO THE ER IF symptoms worsens CALL DR. PARKER AT [phone] IF ANY QUESTIONS REGARDING HOSPITAL STAY. PLEASE CALL THE FLOOR AT [phone] IF ANY MEDICATION OR NURSING QUESTIONS. Diet: ADA Activity: Fall precautions Followup: NONE,NONE [Primary Care Provider] - Time spent managing pt's care (in minutes): 35
== END 2023-02-27 15:50 | disposition home or self-care (01) | DRG 871 ==
LOC: ER 00:47 → EEVIPCON 00:47 → ERHOLD 03:53 → 3RD-ICU 05:46
PROVIDERS: ADMIT Family Medicine; ATTEND Hospitalist
PROC: XW0DXF5 Introduction of Other New Technology Therapeutic Substance into Mouth and Pharynx, External Approach, New Technology Group 5 (ICD-10-PCS; principal; 2023-02-26)
DX: A41.89 Other specified sepsis (principal); J12.82 Pneumonia due to coronavirus disease 2019; J96.01 Acute respiratory failure with hypoxia; U07.1 COVID-19; R57.0 Cardiogenic shock; N17.9 Acute kidney failure, unspecified; E11.9 Type 2 diabetes mellitus without complications; I10 Essential (primary) hypertension; G47.33 Obstructive sleep apnea (adult) (pediatric); F43.10 Post-traumatic stress disorder, unspecified; Z99.89 Dependence on other enabling machines and devices; Z86.73 Personal history of transient ischemic attack (TIA), and cerebral infarction without residual deficits
CPT/HCPCS: 0240U; 36415; 71045; 71275; 76770; 80048; 80053; 80076; 82728; 83605; 83690; 83735; 83880; 84100; 84484; 85025; 85379; 85610; 86140; 87040; 93005; 93970; 94760; 99285; J0696; J1650; J2920; J2930; J7030; J7050; J7613; J7644; J8499; J8540; Q9967